=== PATIENT | male | born 1995 | race Caucasian/White ===

== ENCOUNTER 2017-01-27 09:38 | Emergency (ER) | payer BC ==
[2017-01-27] MEDS ORDERED: Sodium Chloride 0.9% 1,000 ML IV ONE (10:34)
[2017-01-27] MEDS ORDERED: Pantoprazole 40 MG Vial IVPUSH STA (10:35)
--- NOTE | 2017-01-27 10:38 | EDM.PDOC ---
ED HPI GENERAL MEDICAL PROBLEM - General Chief Complaint: Gastrointestinal Problem Stated Complaint: VOMITING BLOOD Time Seen by Provider: 01/27/17 10:01 Source of Information: Reports: Patient, RN Notes Reviewed, Significant Other ( Girlfriend) History Limitations: Reports: No Limitations - History of Present Illness INITIAL COMMENTS - FREE TEXT/NARRATIVE: The patient states that he woke around midnight with left upper quadrant and right upper quadrant abdominal pain, and vomited bright red blood. He states that his initial emesis had blood in it. He states that he has had similar emesis for 5 times since, with his most recent emesis around 07:30. He describes his abdominal pain as dull, however, when he vomits, it is sharp. He states that he took Pepto-Bismol as morning. No prior similar episodes. The patient states that he was taking ibuprofen 800 mg every 4 hours last month for a toothache, with his most recent dose around 1 week ago. He was also taking Tylenol. The patient does not have a PCP. Abdominal Pain Score (Numeric/FACES): 3 - Related Data Allergies Allergy/AdvReac Type Severity Reaction Status Date / Time No Known Allergies Allergy Verified 01/27/17 09:45 Home Meds: Home Meds Pantoprazole [ProTONIX] 1 tab PO Q12H #20 tab.cr 01/27/17 [Rx] Past Medical History - Past Surgical History HEENT Surgical History: Reports: Tonsillectomy Social & Family History - Tobacco Use Smoking Status *Q: Current Every Day Smoker Years of Tobacco use: 9 Packs/Tins Daily: 1 - Alcohol Use Alcohol Use History: Yes Alcohol Use Frequency: Socially - Recreational Drug Use Recreational Drug Use: No - Living Situation & Occupation Living situation: Reports: Single, with Significant Other (Girlfriend), with Family (Son) Occupation: Employed (Fabricator) ED ROS GENERAL - Review of Systems Review Of Systems: See Below Constitutional: Reports: No Symptoms HEENT: Reports: No Symptoms Respiratory: Reports: No Symptoms Cardiovascular: Reports: No Symptoms Endocrine: Reports: No Symptoms GI/Abdominal: Reports: No Symptoms : Reports: No Symptoms Musculoskeletal: Reports: No Symptoms Skin: Reports: No Symptoms Neurological: Reports: No Symptoms Psychiatric: Reports: No Symptoms Hematologic/Lymphatic: Reports: No Symptoms Immunologic: Reports: No Symptoms ED EXAM, GI/ABD - Physical Exam Exam: See Below Exam Limited By: No Limitations General Appearance: Alert, WD/WN, No Apparent Distress Eyes: Bilateral: Normal Appearance, EOMI Ears: Normal External Exam, Hearing Grossly Normal Nose: Normal Inspection, No Blood Throat/Mouth: Normal Inspection, Normal Lips, Normal Voice, No Airway Compromise Head: Atraumatic, Normocephalic Neck: Normal Inspection, Full Range of Motion Respiratory/Chest: No Respiratory Distress, Lungs Clear, Normal Breath Sounds, No Accessory Muscle Use Cardiovascular: Normal Peripheral Pulses, Regular Rate, Rhythm, No Gallop, No JVD, No Murmur, No Rub GI/Abdominal Exam: Normal Bowel Sounds, Soft, No Organomegaly, No Distention, No Abnormal Bruit, No Mass, Tender (Mild, in the epigastric region only. Nontender elsewhere.) (Male) Exam: Deferred Rectal (Males) Exam: Deferred Back Exam: Normal Inspection, Full Range of Motion. No: CVA Tenderness (L), CVA Tenderness (R) Extremities: Normal Inspection, Normal Range of Motion, No Pedal Edema, Normal Capillary Refill Neurological: Alert, Oriented, Normal Cognition, No Motor/Sensory Deficits Psychiatric: Normal Affect Skin Exam: Warm, Dry, Intact, Normal Color, No Rash Course - Vital Signs Last Recorded V/S: Last Vital Signs Temp 36.5 C 01/27/17 09:45 Pulse 71 01/27/17 09:45 Resp 18 01/27/17 09:45 BP 127/68 01/27/17 09:45 Pulse Ox 99 01/27/17 09:45 Orthostatic Blood Pressure [ 118/77 Standing] Orthostatic Blood Pressure [ 122/73 Sitting] Orthostatic Blood Pressure [ 125/57 Supine] - Orders/Labs/Meds Orders: Active Orders 24 hr Category Date Time Status Orthostatic Vital Signs [RC] STAT Care 01/27/17 10:17 Active Orthostatic Vital Signs [RC] STAT Care 01/27/17 11:42 Active Pantoprazole [ProTONIX IV] 80 mg Med 01/27/17 10:45 Active Sodium Chloride 0.9% [Normal Saline] 100 ml IV Q10H NG [Nasogastric Orogastric Tube Insertion] [OM.PC] Oth 01/27/17 10:34 Ordered Routine Medication Orders Pantoprazole Sodium 80 mg/ (Sodium Chloride) 100 mls @ 10 mls/hr IV Q10H CHEL PRN Reason: 8 MG/HR Last Admin: 01/27/17 11:22 Dose: 8 mg/hr, 10 mls/hr Infusion: 01/27/17 11:22 Dose: 8 mg/hr, 10 mls/hr Admin: 01/27/17 11:21 Dose: 8 mg/hr, 10 mls/hr Labs: Laboratory Tests 01/27/17 01/27/17 01/27/17 Range/Units 10:32 10:32 10:32 WBC 8.48 (4.23-9.07) K/mm3 RBC 4.89 (4.63-6.08) M/mm3 Hgb 15.1 (13.7-17.5) gm/L Hct 43.3 (40.1-51.0) % MCV 88.5 (79.0-92.2) fl MCH 30.9 (25.7-32.2) pg MCHC 34.9 (32.2-35.5) g/dl RDW Std Deviation 39.8 (35.1-43.9) fL Plt Count 261 (163-337) K/mm3 MPV 8.8 L (9.4-12.3) fl Neutrophils % (Manual) 81 H (40-60) % Band Neutrophils % 1 (0-10) % Lymphocytes % (Manual) 12 L (20-40) % Atypical Lymphs % 0 % Monocytes % (Manual) 4 (2-10) % Eosinophils % (Manual) 2 (0.8-7.0) % Basophils % (Manual) 0 L (0.2-1.2) Platelet Estimate Adequate Plt Morphology Comment Normal RBC Morph Comment Normal PT 10.7 (8.0-13.0) SECONDS INR 0.98 APTT 27 (22-36) SECONDS Sodium 140 (136-145) mEq/L Potassium 3.8 (3.5-5.1) mEq/L Chloride 102 (98-107) mEq/L Carbon Dioxide 26 (21-32) mEq/L Anion Gap 15.8 H (5-15) BUN 16 (7-18) mg/dL Creatinine 0.9 (0.7-1.3) mg/dL Est Cr Clr Drug Dosing 151.51 mL/min Estimated GFR (MDRD) > 60 (>60) mL/min BUN/Creatinine Ratio 17.8 (14-18) Glucose 91 (74-106) mg/dL Calcium 9.1 (8.5-10.1) mg/dL Total Bilirubin 2.6 H (0.2-1.0) mg/dL AST 22 (15-37) U/L ALT 31 (16-63) U/L Alkaline Phosphatase 54 (46-116) U/L Total Protein 7.1 (6.4-8.2) g/dl Albumin 4.2 (3.4-5.0) g/dl Globulin 2.9 gm/dL Albumin/Globulin Ratio 1.5 (1-2) Meds: Medications Generic Name Dose Route Start Last Admin Trade Name Freq PRN Reason Stop Dose Admin Pantoprazole Sodium 80 mg/ 100 mls @ 10 mls/hr 01/27/17 10:45 01/27/17 11:22 Sodium Chloride IV 8 mg/hr Q10H CHEL 10 mls/hr 8 MG/HR Administration Discontinued Medications Generic Name Dose Route Start Last Admin Trade Name Freq PRN Reason Stop Dose Admin Sodium Chloride 1,000 mls @ 999 mls/hr 01/27/17 10:34 01/27/17 10:53 Normal Saline IV 01/27/17 11:34 999 mls/hr ONETIME ONE Administration Pantoprazole Sodium 80 mg 01/27/17 10:35 01/27/17 10:58 Protonix Iv IVPUSH 01/27/17 10:36 80 mg ONETIME STA Administration - Re-Assessments/Exams Free Text/Narrative Re-Assessment/Exam: 01/27/17 10:33 The patient's systolic BP dropped 20 mmHg between supine and standing, qualifying as orthostasis. I will order IV fluid, pantoprazole IVP and drip, and an NG tube to see if the patient is still bleeding. 01/27/17 11:10 The NG tube was placed per the RN, however, the patient has become hostile and demands that the NG tube be removed. He has been made aware that upper GI bleeds can be very serious, and that the way we monitor whether or not the patient is actively bleeding is through an NG tube. 01/27/17 11:[address] Bustos at 11:27. He is recommending that we correct the patient's orthostasis, then discharge him home on pantoprazole. He would like the patient to follow-up in the clinic, where an EGD can be considered. 01/27/17 13:07 Following 1 L NS, the patient is no longer orthostatic. I will discharge him home a prescription for pantoprazole and with instructions to follow-up with Dr. Bustos this week. Departure - Departure Time of Disposition: 13:08 Disposition: Home, Self-Care 01 Condition: Fair Clinical Impression: Upper GI bleed, Orthostasis - Discharge Information Referrals: PCP,Not In Area [Primary Care Provider] - Nilton Bustos MD [Physician] - Forms: ED Department Discharge Additional Instructions: You were seen in the emergency room for vomiting blood. Workup in the ER included blood work and positional blood pressure checks. Your blood pressure dropped more than normal between lying and standing up, therefore your given 1 L of IV fluid. Your blood pressure was rechecked, and found to be normal. You have been started on the antacid medicine pantoprazole. Take one tablet every 12 hours, starting , 01/27/2017, as prescribed. Follow-up with the Surgeon Dr. Bustos this week, to discuss getting an EGD ( scope of the stomach). It is very important that you NOT TAKE any NSAIDs, including aspirin, ibuprofen (Advil, Motrin), or naproxen (Aleve). If any other problems, including continued vomiting of blood, please do not hesitate to return to the ER. - My Orders Last 24 Hours: My Active Orders 01/27/17 10:17 Orthostatic Vital Signs [RC] STAT 01/27/17 10:34 NG [Nasogastric Orogastric Tube Insertion] [OM.PC] Routine 01/27/17 10:45 Pantoprazole [ProTONIX IV] 80 mg Sodium Chloride 0.9% [Normal Saline] 100 ml IV Q10H 01/27/17 11:42 Orthostatic Vital Signs [RC] STAT - Assessment/Plan Last 24 Hours: My Active Orders 01/27/17 10:17 Orthostatic Vital Signs [RC] STAT 01/27/17 10:34 NG [Nasogastric Orogastric Tube Insertion] [OM.PC] Routine 01/27/17 10:45 Pantoprazole [ProTONIX IV] 80 mg Sodium Chloride 0.9% [Normal Saline] 100 ml IV Q10H 01/27/17 11:42 Orthostatic Vital Signs [RC] STAT
[2017-01-27] MEDS: Pantoprazole 80 MG in Sodium Chloride 0.9% 100 ML IV SCH ×2 (11:21→11:22)
== END 2017-01-27 13:28 | disposition home or self-care (01) ==
LOC: JD.ED 09:38
DX: K92.2 Gastrointestinal hemorrhage, unspecified (principal); I95.1 Orthostatic hypotension; F17.210 Nicotine dependence, cigarettes, uncomplicated
CPT/HCPCS: 36415; 80053; 85025; 85610; 85730; 96361; 96365; 96376; 99284; C9113; J7030; J7040

== ENCOUNTER 2018-10-18 20:46 | Emergency (ER) | payer BC, OTHER ==
[2018-10-18] MEDS ORDERED: Proparacaine 0.5% Ophth Soln 15 ML Bottle EYELF ONE (21:04)
[2018-10-18] MEDS ORDERED: Fluorescein 0.6 MG Ophth Strip EYELF ONE (21:04)
--- NOTE | 2018-10-18 21:05 | EDM.PDOC ---
ED HPI GENERAL MEDICAL PROBLEM - General Chief Complaint: Eye Problems Stated Complaint: let eye pain and swelling around eye Time Seen by Provider: 10/18/18 20:59 - History of Present Illness INITIAL COMMENTS - FREE TEXT/NARRATIVE: Patient noticed pain in his eye this morning however he left work yesterday. He works as a metal welder. Patient is had eye pain since this morning. He's up to date on his tetanus, last tetanus shot about a year and half ago. Patient is not sure if he got something in his eye or if he injured his eye but he doesn't recall doing that. Left Eye Pain Score (Numeric/FACES): 8 - Related Data Allergies Allergy/AdvReac Type Severity Reaction Status Date / Time No Known Allergies Allergy Verified 01/27/17 09:45 Home Meds: Home Meds . [No Known Home Meds] 10/18/18 [History] Past Medical History - Past Health History Medical/Surgical History: Denies Medical/Surgical History - Past Surgical History HEENT Surgical History: Reports: Oral Surgery, Tonsillectomy Musculoskeletal Surgical History: Reports: Arthroscopic Knee Social & Family History - Family History Family Medical History: Noncontributory - Tobacco Use Smoking Status *Q: Current Every Day Smoker Years of Tobacco use: 10 Packs/Tins Daily: 1 - Caffeine Use Caffeine Use: Reports: Coffee, Energy Drinks - Recreational Drug Use Recreational Drug Use: No - Living Situation & Occupation Living situation: Reports: Single, with Significant Other (Girlfriend), with Family (Son) Occupation: Employed (Fabricator) ED ROS GENERAL - Review of Systems Review Of Systems: See Below Constitutional: Reports: No Symptoms HEENT: Reports: Eye Pain Respiratory: Reports: No Symptoms Cardiovascular: Reports: No Symptoms GI/Abdominal: Reports: No Symptoms ED EXAM GENERAL W FULL EYE - Physical Exam Exam: See Below Exam Limited By: No Limitations General Appearance: Alert, No Apparent Distress Eye Exam: Left Eye: Normal Fundi, PERRL, Other (Small amount of discharge) Eyelids: Bilateral: Normal Appearance Conjunctiva & Sclera: Bilateral: Normal Appearance Cornea Exam: Left: Foreign Body (Metallic foreign body removed with an eye spud rust ring removed), Examined with Flourescein Extraocular Movements: Bilateral: Intact Anterior Chamber: Bilateral: Normal Appearance Posterior Chamber: Left: Normal Funduscopic Head: Atraumatic, Normocephalic Neck: Normal Inspection, Supple, Non-Tender, Full Range of Motion. No: Lymphadenopathy (L), Lymphadenopathy (R) Respiratory/Chest: No Respiratory Distress, Lungs Clear, Normal Breath Sounds Cardiovascular: Regular Rate, Rhythm, No Edema, No Murmur ED EYE w/ Add Procedure - Eye Procedure Alcaine Drops Administered: No (Proparacaine was used) Eye FB Removal: Other (Foreign body removed with eye spud then the rust ring removed with bur no c) Antibiotic Oinment/Drps Admin: Left Eye Progress: Patient did well Course - Vital Signs Last Recorded V/S: Last Vital Signs Temp 36.6 C 10/18/18 20:54 Pulse 77 10/18/18 20:54 Resp 16 10/18/18 20:54 BP 137/68 10/18/18 20:54 Pulse Ox 95 10/18/18 20:54 - Orders/Labs/Meds Meds: Medications Discontinued Medications Generic Name Dose Route Start Last Admin Trade Name Marisol PRN Reason Stop Dose Admin Fluorescein Sodium 0.6 mg 10/18/18 21:04 10/18/18 21:30 Ful-Jesika EYELF 10/18/18 21:05 0.6 mg ONETIME ONE Administration Proparacaine HCl 0.01 ml 10/18/18 21:04 10/18/18 21:30 Proparacaine 0.5% Ophth Soln EYELF 10/18/18 21:05 1 drop ONETIME ONE Administration Departure - Departure Time of Disposition: 22:10 Disposition: Home, Self-Care 01 Clinical Impression: Foreign body in cornea, left eye, initial encounter - Discharge Information Referrals: PCP,None [Primary Care Provider] - Forms: ED Department Discharge Additional Instructions: Return to the emergency room with any questions problems or worsening symptoms. Use the erythromycin ointment about a third of an inch to your eye every couple hours while awake and before he go to bed, may stop using this after the pain stops. We gave you some pain pills from the machine out in the waiting room, hydrocodone 5/325 No. 20 take one or 2 every 4-6 hours as needed for pain. Allow 12 hours after using this medication before driving or returning to work.
[2018-10-18] MEDS ORDERED: Acetaminophen/HYDROcodone 325-5 MG Tab PO ONE (22:02)
[2018-10-18] MEDS ORDERED: Erythromycin Base 0.5% Ophth Oint 1 GM Tube EYELF ONE (22:03)
== END 2018-10-18 22:17 | disposition home or self-care (01) ==
LOC: JD.ED 20:46
DX: T15.02XA Foreign body in cornea, left eye, initial encounter (principal); F17.210 Nicotine dependence, cigarettes, uncomplicated; Z98.890 Other specified postprocedural states; X58.XXXA Exposure to other specified factors, initial encounter; Y99.0 Civilian activity done for income or pay
CPT/HCPCS: 65220; 99283; A9270; 65222; 99282

== ENCOUNTER 2018-11-23 23:36 | Emergency (ER) | payer OTHER ==
[2018-11-24] MEDS ORDERED: Penicillin V Potassium 500 MG Tab PO STA (00:41)
--- NOTE | 2018-11-24 00:48 | EDM.PDOC ---
ED HPI GENERAL MEDICAL PROBLEM - General Chief Complaint: ENT Problem Stated Complaint: tooth pain Time Seen by Provider: 11/24/18 00:12 Source of Information: Reports: Patient History Limitations: Reports: No Limitations - History of Present Illness INITIAL COMMENTS - FREE TEXT/NARRATIVE: Mr. Valadez is a pleasant 23-year-old man with no significant past medical history who states that he broke a lower right tooth about 5-6 months ago, but that he did not have any discomfort from it until this past 11/20/2018. He denies any recent event, such as biting down on something hard. The pain has been increasing progressively since Friday. No recent fever or oral drainage. The patient states that he saw his dentist about 5 or 6 months ago, after he broke his tooth. He states that he was told at that time that he needed a crown or to have the tooth pulled. He has an appointment with his dentist this coming week to have the tooth extracted. The patient does not have a PCP. Right Lower Tooth/Teeth Pain Score (Numeric/FACES): 10 - Related Data Allergies Allergy/AdvReac Type Severity Reaction Status Date / Time No Known Allergies Allergy Verified 01/27/17 09:45 Home Meds: Home Meds Penicillin V Potassium 500 mg PO Q6HR #40 tab 11/24/18 [Rx] Past Medical History - Past Surgical History HEENT Surgical History: Reports: Oral Surgery (wisdom teeth extracted), Tonsillectomy Musculoskeletal Surgical History: Reports: Arthroscopic Knee (left) Social & Family History - Family History Family Medical History: Noncontributory - Tobacco Use Smoking Status *Q: Current Every Day Smoker Years of Tobacco use: 10 Packs/Tins Daily: 1 - Caffeine Use Caffeine Use: Reports: Coffee, Energy Drinks - Alcohol Use Alcohol Use History: Yes Alcohol Use Frequency: Socially - Recreational Drug Use Recreational Drug Use: No - Living Situation & Occupation Living situation: Reports: Single, with Family (Son) Occupation: Employed (Special Duty Nurse) ED ROS ENT - Review of Systems Review Of Systems: ROS reveals no pertinent complaints other than HPI. ED EXAM, ENT - Physical Exam Exam: See Below Exam Limited By: No Limitations General Appearance: Alert, WD/WN, No Apparent Distress Eye Exam: Bilateral Eye: EOMI, Normal Inspection Ears: Normal External Exam, Normal Canal, Hearing Grossly Normal, Normal TMs Nose: Normal Inspection, Normal Mucousa, No Blood Mouth/Throat: Normal Lips, Normal Oropharynx, Other (Teeth #1, 2 absent. Tooth # 5 absent. Tooth #13 with metallic filling. Tooth #16 absent. Tooth #17 absent. Tooth #19 absent. Tooth #20 with posterior shanta. Tooth #29 with metallic filling. Tooth #30 (the tooth of concern) with likely anterior fracture and decay of the body of the tooth. There is associated gingival swelling without pointing. Tooth #32 absent.) Head: Atraumatic, Normocephalic. No: Facial Swelling Neck: Normal Inspection, Supple, Non-Tender, Full Range of Motion. No: Lymphadenopathy (L), Lymphadenopathy (R) Course - Vital Signs Last Recorded V/S: Last Vital Signs Temp 36.2 C 11/23/18 23:40 Pulse 71 11/23/18 23:40 Resp 16 11/23/18 23:40 BP 150/100 H 11/23/18 23:40 Pulse Ox 99 11/23/18 23:40 - Orders/Labs/Meds Meds: Medications Discontinued Medications Generic Name Dose Route Start Last Admin Trade Name Freq PRN Reason Stop Dose Admin Penicillin V Potassium 500 mg 11/24/18 00:41 11/24/18 00:54 Veetids PO 11/24/18 00:42 500 mg ONETIME STA Administration - Re-Assessments/Exams Free Text/Narrative Re-Assessment/Exam: 11/24/18 00:42 Tooth #30 appears to have an anterior fracture with decay of the body of the tooth. There is some gingival edema without pointing in that area, suggesting an underlying infection. The patient will be started on penicillin, and I will prescribe 10-day course. Going forward, I'm recommending that the patient use Orajel, Dentemp, and an [id number] NSAID, such as ibuprofen or naproxen. As per the HPI, the patient will follow-up with his dentist at a previously scheduled appointment this coming week. Departure - Departure Time of Disposition: 00:44 Disposition: Home, Self-Care 01 Condition: Good Clinical Impression: Dental infection - Discharge Information *PRESCRIPTION DRUG MONITORING PROGRAM REVIEWED*: Not Applicable *COPY OF PRESCRIPTION DRUG MONITORING REPORT IN PATIENT MARY: Not Applicable Prescriptions: Penicillin V Potassium 500 mg PO Q6HR #40 tab Instructions: Dental Abscess, [id number] Referrals: PCP,None [Primary Care Provider] - Forms: ED Department Discharge Additional Instructions: You were seen in the emergency room for a lower right toothache. On examination, you appear to have a fractured and infected tooth #30. You have been started on the antibiotic penicillin. A prescription for penicillin has been sent to the [facility], located just south and across the [address] from [facility]. Take one tablet of penicillin every 6 hours, as prescribed. Finish the entire prescription unless told otherwise by her dentist. In addition to penicillin, we recommend that you take [id number] ibuprofen , 3 tablets (600 mg) with food, up to every 8 hours, as needed for discomfort. In addition, you can apply [id number] Orajel to the tooth for immediate relief. In addition, we recommend that you purchase Dentemp or a similar temporary dental repair kit, to help with discomfort. Follow-up with your dentist at your previously scheduled appointment next week. If any other problems, please do not hesitate to return to the ER.
== END 2018-11-24 00:55 | disposition home or self-care (01) ==
LOC: JD.ED 23:36
DX: K04.7 Periapical abscess without sinus (principal); F17.210 Nicotine dependence, cigarettes, uncomplicated
CPT/HCPCS: 99282; A9270; 99283